=== PATIENT | male | born 1965 | race Caucasian/White ===

== ENCOUNTER 2023-06-26 15:26 | Observation (INO) | payer BC, SELFPAY ==
[2023-06-26 11:17] VITALS: BP 140/105
[2023-06-26 11:57] VITALS: BMI 30.9
[2023-06-26 12:16] LABS: % Basophils 0.8 % (0-2); % Eosinophils 0.5 % (0-6); % Immature Granulocytes 0.7 % (0-0.5); % Lymphocytes 13.3 % (20.5-51.1); % Monocytes 10.7 % (1.7-9.3); Absolute Basophils 0.1 10^3/uL (0-0.2); Absolute Immature Granulocytes 0.1 10^3/uL (0-0.05); Absolute Monocytes 0.8 10^3/uL (0.1-0.6); Absolute Neutrophils 5.6 10^3/uL (1.4-6.5); Hematocrit 44.3 % (39.0-52.0); Hemoglobin 15.3 g/dL (13.0-18.0); Mean Corp Hgb Conc. 34.5 g/dL (33.0-37.0); Mean Corpuscular Hgb 35.3 pg (27.0-31.0); Mean Corpuscular Volume 102.3 fL (80.0-94.0); Mean Platelet Volume 9.8 fL (7.4-10.4); Nucleated Red Blood Cells % 0 % (-); Platelet Count 156 10^3/uL (130-400); Red Blood Cell Count 4.33 10^6/uL (4.70-6.10); Red Cell Dist. Width 11.3 % (11.5-14.5); White Blood Cell Count 7.6 10^3/uL (4.8-10.8)
[2023-06-26 12:32] LABS: ALT (SGPT) 49 U/L (0-50); AST (SGOT) 47 U/L (17-59); Albumin 4.5 g/dl (3.5-5.0); Alkaline Phosphatase 72 U/L (38-126); Blood Urea Nitrogen 10 mg/dl (9-20); Calcium 9.8 mg/dl (8.4-10.2); Carbon Dioxide 25 mmol/L (22-30); Chloride 102 mmol/L (98-107); Estimated Creatinine Clearance 91 ml/min; Glucose 117 mg/dl (70-99); Potassium 4.2 mmol/L (3.5-5.1); Sodium 134 mmol/L (135-145); Total Bilirubin 1.1 mg/dl (0.2-1.3); Total Protein 7.4 g/dl (6.3-8.2); eGFR > 60.00
--- NOTE | 2023-06-26 12:33 | ED.GENMED ---
History of Present Illness
<Peri Hurtado MD - Last Filed: 06/26/23 12:34>
General
Chief Complaint: Musculo-Skeletal Complaint
Time Seen by Provider: 06/26/23 11:35
Travel History
Have you had any contact with someone who has COVID-19?: No
Do you have any symptoms of coronavirus? Fever > 100 degrees, chills, cough, shortness of breath, sore throat, loss of taste or smell, muscle aches, or headache?: No
<Bayron Anthony Jr., PA-C - Last Filed: 06/26/23 14:31>
General
Source: patient and spouse
Exam Limitations: none
Nursing documentation reviewed up to this point in time: agreed with
History of Present Illness
History of Present Illness:
57-year-old male with past with history of GERD previous back issues previous smoker presenting to the emergency department today with concerns of 2 days of right-sided foot swelling as well as 1 day of left-sided foot swelling. Swelling
significantly worsened today and diffuse to the left foot maximal to the toes. Minimal swelling mainly to the toes to the right foot otherwise no significant redness past the ankles or proximal. No chest pain shortness of breath no history of
blood clots no recent trauma surgery immobilization. No recent illnesses or fever. No trauma to the area.
Past History
<Peri Hurtado MD - Last Filed: 06/26/23 12:34>
Past History
ED Past Medical History: None
ED Past Surgical History: Orthopedic
Social History
Tobacco: Non-smoker
Alcohol: Occasional
Personal:
Living: with family
Employment: Retired
Review of Systems
<Bayron Anthony Jr., PA-C - Last Filed: 06/26/23 14:31>
Review of Systems
Allergies reviewed?: Yes
All Other Systems: ROS reviewed and negative except as documented in HPI and ROS
Phy Exam
<Bayron Anthony Jr., PA-C - Last Filed: 06/26/23 14:31>
Physical Exam
Physical Exam:
GENERAL: Alert , in no apparent distress
EYE: pupils equal and reactive
NECK: Supple, no significant adenopathy.
ENT: o/p clr, mmm.
CARDIAC: Regular rate and rhythm .
LUNGS: Clear breath sounds bilaterally, no acute respiratory distress, no wheezes/rales/rhonchi
ABDOMEN: Soft, without focal tenderness, no r/g, no cvat
NEUROLOGICAL: Alert and oriented, no focal neuro deficits
SKIN: Warm and dry, skin intact.
MUSCULOSKELETAL: Significant swelling to the feet bilaterally left worse than the right but maximal to the great toe of the left foot but into the sole of the foot on the left side swelling mainly to the toes on the right side. Very tender to
palpation with even light palpation well perfused.
PSYCH: Normal and appropriate interaction.
Course
<Peri Hurtado MD - Last Filed: 06/26/23 12:34>
Orders/Labs/Results
Orders:
Orders
06/26/23 11:50
Venous Doppler Lwr Ext Bilat [US Periph Venous LOWER Ext Mike] Urgent
Comment:
Reason For Exam: leg swelling
06/26/23 11:54
Foot, Left 3 View [CR Foot - Left Min 3 Views] Urgent
Comment:
Reason For Exam: foot pain swelling
Foot, Right 3 View [CR Foot - Right Min 3 Views] Urgent
Comment:
Reason For Exam: foot pain swelling
06/26/23 12:08
Add On- LAB Urgent
Tests Added?: uric acid
CBC/With Diff [Complete Blood Count/With Diff] Urgent
CMP [Comprehensive Metabolic Panel] Urgent
CRP [C-Reactive Protein] Urgent
ESR [Erythrocyte Sed Rate] Urgent
TSH Reflex To Free T4 Urgent
Uric Acid Urgent
Comment: ADD ON
06/26/23 13:12
Urinalysis Reflex To Culture Urgent
Date Specimen was Collected: 06/26/23
Time Specimen was Collected: 13:08
06/26/23 13:13
Ketorolac [Toradol] 30 mg IV NOW STA
06/26/23 14:29
Morphine Sulfate 4 mg IV NOW STA
Abnormal Lab Results
06/26/23 06/26/23
12:08 13:12
RBC 4.33 L 10^6/uL
(4.70-6.10)
MCV 102.3 H fL
(80.0-94.0)
MCH 35.3 H pg
(27.0-31.0)
RDW 11.3 L %
(11.5-14.5)
Abs Immat Gran (auto) 0.1 H 10^3/uL
(0-0.05)
Absolute Lymphs (auto) 1.0 L 10^3/uL
(1.2-3.4)
Absolute Monos (auto) 0.8 H 10^3/uL
(0.1-0.6)
Immature Gran % 0.7 H %
(0-0.5)
Lymphocytes % 13.3 L %
(20.5-51.1)
Monocytes % 10.7 H %
(1.7-9.3)
Sodium 134 L mmol/L
(135-145)
Glucose 117 H mg/dl
(70-99)
C-Reactive Protein 57.90 H mg/L
(0.0-10.00)
Urine Ketones Trace A
(Negative)
Urine Bilirubin 1+ A
(Negative)
06/26/23 12:08
06/26/23 12:08
Vital Signs
Initial and Last Documented VS:
Initial Vital Signs
Temp Pulse Resp BP Pulse Ox
97.9 F 88 18 140/105 98
06/26/23 11:17 06/26/23 11:17 06/26/23 11:17 06/26/23 11:17 06/26/23 11:17
Last Documented Vital Signs
Temp Pulse Resp BP Pulse Ox
97.9 F 64 18 129/85 97
06/26/23 11:17 06/26/23 13:06 06/26/23 13:06 06/26/23 13:06 06/26/23 13:06
<Bayron Anthony Jr., PA-C - Last Filed: 06/26/23 14:31>
Orders/Labs/Results
Orders:
Orders
06/26/23 11:50
Venous Doppler Lwr Ext Bilat [US Periph Venous LOWER Ext Mike] Urgent
Comment:
Reason For Exam: leg swelling
06/26/23 11:54
Foot, Left 3 View [CR Foot - Left Min 3 Views] Urgent
Comment:
Reason For Exam: foot pain swelling
Foot, Right 3 View [CR Foot - Right Min 3 Views] Urgent
Comment:
Reason For Exam: foot pain swelling
06/26/23 12:08
Add On- LAB Urgent
Tests Added?: uric acid
CBC/With Diff [Complete Blood Count/With Diff] Urgent
CMP [Comprehensive Metabolic Panel] Urgent
CRP [C-Reactive Protein] Urgent
ESR [Erythrocyte Sed Rate] Urgent
TSH Reflex To Free T4 Urgent
Uric Acid Urgent
Comment: ADD ON
06/26/23 13:12
Urinalysis Reflex To Culture Urgent
Date Specimen was Collected: 06/26/23
Time Specimen was Collected: 13:08
06/26/23 13:13
Ketorolac [Toradol] 30 mg IV NOW STA
06/26/23 14:29
Morphine Sulfate 4 mg IV NOW STA
Abnormal Lab Results
06/26/23 06/26/23
12:08 13:12
RBC 4.33 L 10^6/uL
(4.70-6.10)
MCV 102.3 H fL
(80.0-94.0)
MCH 35.3 H pg
(27.0-31.0)
RDW 11.3 L %
(11.5-14.5)
Abs Immat Gran (auto) 0.1 H 10^3/uL
(0-0.05)
Absolute Lymphs (auto) 1.0 L 10^3/uL
(1.2-3.4)
Absolute Monos (auto) 0.8 H 10^3/uL
(0.1-0.6)
Immature Gran % 0.7 H %
(0-0.5)
Lymphocytes % 13.3 L %
(20.5-51.1)
Monocytes % 10.7 H %
(1.7-9.3)
Sodium 134 L mmol/L
(135-145)
Glucose 117 H mg/dl
(70-99)
C-Reactive Protein 57.90 H mg/L
(0.0-10.00)
Urine Ketones Trace A
(Negative)
Urine Bilirubin 1+ A
(Negative)
06/26/23 12:08
06/26/23 12:08
Vital Signs
Initial and Last Documented VS:
Initial Vital Signs
Temp Pulse Resp BP Pulse Ox
97.9 F 88 18 140/105 98
06/26/23 11:17 06/26/23 11:17 06/26/23 11:17 06/26/23 11:17 06/26/23 11:17
Last Documented Vital Signs
Temp Pulse Resp BP Pulse Ox
97.9 F 64 18 129/85 97
06/26/23 11:17 06/26/23 13:06 06/26/23 13:06 06/26/23 13:06 06/26/23 13:06
<Bayron Anthony Jr., PA-C - Last Filed: 06/26/23 14:31>
MDM/Problems Addressed
MDM/Problems Addressed:
57 male presenting to the emergency department today with concerns of swelling redness and discomfort to the feet bilaterally left worse than the right but right starting 2 days ago left starting yesterday. No specific inciting event normal vital
signs afebrile does not appear to be consistent with infection as this is bilateral and has no systemic symptoms or fever. No immunosuppression history no history of diabetes. Labs show elevated CRP but otherwise no acute abnormalities to the
labs. X-ray showing arthritis but no acute abnormalities as well. Ultrasound not showing DVT. Patient still with ongoing significant symptoms was given a dose of Toradol without improvement. Unclear specific cause but having significant pain to
the point where he is unable to ambulate. Need for further assessment and monitoring.
<Bayron Anthony Jr., PA-C - Last Filed: 06/26/23 14:31>
*Critical Care Note
Total Time (30-74mins, 75-104mins- exclusive of procedures): Not Applicable
ED Attending Note
<Peri Hurtado MD - Last Filed: 06/26/23 12:34>
ED Attending Note
Patient seen and examined by attending physician: Yes
I performed the substantive portion of visit, reviewed & personally made and approve the management plan that is documented in note by myself or ANDRADE.: Yes
ED Attending Note:
The patient presents with painful to the touch, hyperemic toes bilaterally. In addition, patient has erythema, warmth and tenderness of his medial left ankle. Differential diagnosis includes circulatory, infection and arthritic process.
Clinically is painful like gout would be but very atypical and that there are multiple areas and it is bilateral.
-
Portions of this chart may have been created with voice recognition software.� Occasional wrong word or��sound alike� substitutions may have occurred due to the inherent limitations of voice recognition software.
Discharge Plan
Departure
Patient Disposition: Admit
Date of Disposition: 06/26/23
Time of Disposition: 14:31
Admit to: Med/Surg
Admit to doctor: Edmond
Presentation/result/management discussed w/ accepting MD/DO: Hospitalist
Patient with high blood pressure during this ER visit?: No
Condition: Good
Covid-19: Not Applicable
Discharge Problem:
Bilateral foot pain, Bilateral swelling of feet
Prescriptions:
No Action
famotidine 40 mg Tablet
40 mg PO HS
omeprazole 40 mg Capsule,Delayed Release(Dr/Ec)
40 mg PO DAILY
montelukast [Singulair] 10 mg Tablet
10 mg PO BID
Referrals:
Ghulam Cam MD [Family Provider] -
Interventions
Interventions:
*Risk Screen - Suicide Last Done: 06/26/23 11:58
*General Assessment Last Done: 06/26/23 11:58
*Neglect/Abuse Screening Last Done: 06/26/23 11:58
*ED COVID-19 Vaccine History Last Done: 06/26/23 11:17
ED-Musculoskeletal Assessment Last Done: 06/26/23 12:11
Discharge Date and Time
Print Language: CHINESE
[2023-06-26 13:02] LABS: Uric Acid 7.5 mg/dl (3.5-8.5)
[2023-06-26 13:04] LABS: TSH Reflex To Free T4 3.39 uIU/ml (0.47-4.68)
[2023-06-26 13:06] VITALS: BP 129/85
[2023-06-26 13:12] LABS: Erythrocyte Sed Rate 19 mm/hour (0-20)
[2023-06-26] MEDS: TORADOL 30 MG IV (13:16)
[2023-06-26 13:29] LABS: Urine Albumin Negative (Neg - Trace); Urine Bilirubin 1+ (Negative); Urine Character Clear (Clear); Urine Color Yellow; Urine Glucose Negative (Negative); Urine Ketone Trace (Negative); Urine Leukocyte Negative (Negative); Urine Nitrite Negative (Negative); Urine Occult Blood Negative (Negative); Urine Specific Gravity 1.005 (<1.030); Urine Urobilinogen Negative (Neg - 1+)
--- NOTE | 2023-06-26 14:33 | HPS.HSE ---
Addendum entered and electronically signed by Adam Edmond MD 06/26/23 15:51:
seen and examined by me independently in collaboration with the nurse practitioner Kimi.
Past medical history/social history/medication/allergies reviewed.
Lab data and imaging data reviewed.
Patient presents with acute onset of right ankle pain and inability to ambulate on Sunday morning- took some ibuprofen and felt better and then on subsequent morning he had left ankle pain and again inability to weight-bear on the left ankle. No
trauma.
He felt the left ankle was little swollen and red. no fever or chills.
No prior history of gout but he had acute bilateral big toe pain and swelling which got better with ibuprofen ;it was year ago.
No other joints involved.
No fever or chills.
Generally otherwise feeling okay.
Very sensitive touch of left foot. Medially the left ankle is slightly swollen and red. It is warm to touch. Pain on minimal movements of the left ankle.. Received pain medication. More free range of motion of the right ankle compared to this
morning Per patient.
Foot x-ray shows left distal interphalange joint arthritis which could have been gout but he also had trauma and fracture to that joint few years back which could explain it. Rt foot xray shows -osteoarthritis with moderate joint space narrowing and
mild degenerative spurring at the metatarsophalangeal joint of the great toe which probably prior joint insult form a dz process . Other joint are ok on xrays.
Elevated ESR noted.
Denies excessive consumption of alcohol on the weekend prior to onset of joint pains.
Clinical concern is for acute gouty oligoarthritis. In view of significant symptoms precluding weightbearing we will start on steroids and also colchicine. Follow response and if improved will cw colchicine alone. If worse will obtain
arthrocentesis of left ankle joint. Clinically less likely septic.
Original Note:
Family Physician
-
Family Physician: Ghulam Cam
Chief Complaint
-
bilat foot pain with ankle and lateral foot pain
History of Present Illness
57-year-old male complaining of 2 days of bilateral feet swelling that have significantly worsened today left greater than right. He states the pain started approximate 2 days ago with joint pain in his ankles and toes along with some swelling to
his toes mild erythema over right lateral foot and left tibial ankle. He reports he has been taking 800 mg once a day but is not helping. He states he normally has pain in both bilateral great toes that is relieved with Aleve. He denies any
injury, new shoes, prolonged walking ,blood clot history, chest pain, shortness of breath, cough, illness, fever, rash, chest pain, palpitations, urinary symptoms, nausea ,vomiting diarrhea, abdominal pain. He has past medical history of GERD,
back pain, ex-smoker.
Medical History
Past Medical History
Past Medical History: Reports Other
Additional Past Medical History:
GERD
back pain lumbar L3-L4
ex-smoker
Past Surgical History: Reports Other (L3-L4 epidural [address] [facility])
Social History
Tobacco: Former Smoker (22-year 1 pack a day stopped 3 years ago)
Alcohol: Occasional (Drinks 3 cans of Coors light 3 days a week)
Personal: Single
Living: Alone
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
Family History
Family History: Other (Father age 65 pancreatic cancer history DM2, mother estranged)
Allergies / Home Medications
Allergies reflects when Allergies were last updated in [employer].
Home Medications with original date entered in [employer]
Allergy/Medication List:
Allergies
Allergy/AdvReac Type Severity Reaction Status Date / Time
codeine [Codeine] Allergy nauesa Verified 06/26/23 11:23
mold Allergy clogged Uncoded 06/26/23 11:23
nose
Home Medications
famotidine 40 mg tablet 40 mg PO HS 06/26/23
montelukast 10 mg tablet (Singulair) 10 mg PO BID 06/26/23
omeprazole 40 mg capsule,delayed release 40 mg PO DAILY 06/26/23
Review of Systems
-
History Source: Patient
A 12 point ROS was completed and negative except as noted: Yes
Constitutional: Denies Fever, Fatigue or Chills
EENT: Denies Sore Throat, Mouth Pain or Runny Nose
Respiratory: Denies Cough or Trouble Breathing
Cardiac: Denies Chest Pain, Diaphoresis, Palpitations or Syncope
Abdomen/GI: Denies Abdominal Pain, Nausea, Vomiting, Diarrhea, Constipated, Bloody Stools or Black Stools
: Denies Dysuria, Frequency, Flank Pain, Incontinence, Difficulty Voiding or Urgency
Musculoskeletal: Reports Joint Pain (Bilateral feet), Joint Swelling and Edema (Toes, right lateral foot, left tibial ankle)
Skin: Denies Itching or Rash
Neurological: Denies Dizzy, Headache or Weakness
Endocrine: Reports No Symptoms
Hematologic/Lymphatic: Reports No Symptoms
Psych: Reports Calm
Physical Exam
Vital Signs
Vital Signs
Temp Pulse Resp BP Pulse Ox
97.9 F 64 18 129/85 97
06/26/23 11:17 06/26/23 13:06 06/26/23 13:06 06/26/23 13:06 06/26/23 13:06
Physical Exam
General: Conversant and Pain; No Fever or Chills
HEENT: NormoCephalic, Anicteric, Moist mucous membranes, PERRLA, [place] Conjunctivae and No Ptosis
Respiratory: Clear; No Wheezes, Rales or Rhonchi
Cardiac: S1/S2 and Regular Rhythm; No Murmur, Rub, Gallop or Peripheral Edema
GI: Soft, Non Tender, Non Distended, Normal Bowel Sounds and No Hepatosplenomegaly
Rectal: Deferred by Provider
Genito-urinary: Deferred by me
Musculoskeletal: No Clubbing, No Cyanosis, Edema, Left Lower Extremity (Slight edema toes increased pain sensitivity, left tibial ankle edema with slight erythema, soles of foot slightly erythematous) and Edema, Right Lower Extremity (Slight edema
to toes with increased pain sensation, positive cap refill, right lateral foot slight erythema with increased pain, soles of foot slightly erythematous); No Edema, Left Upper Extremity or Edema, Right Upper Extremity
Skin: Warm and Dry; No Rash
Neuro: AO x 3, Nonfocal/grossly intact, Cranial Nerves Intact and No Sensory Deficits; No Slurred Speech, Facial Droop or Tremors
Psych: Calm
Laboratory Results
-
06/26/23 12:08
06/26/23 12:08
Laboratory Results
Total Bilirubin 1.1 mg/dl (0.2-1.3) 06/26/23 12:08
AST 47 U/L (17-59) 06/26/23 12:08
ALT 49 U/L (0-50) 06/26/23 12:08
Alkaline Phosphatase 72 U/L (38-126) 06/26/23 12:08
Data Reviewed
-
Diagnostic Radiology: Report Reviewed by me
Ultrasound: Report Reviewed by me
Lab Data: Labs Reviewed by me
Impression/Plan
-
Impression/plan:
Observation MedSurg
#Acute bilateral foot/joint pain with ambulatory dysfunction concern for Gout
-CRP 57.9
-Start colchcine 1.2 mg po now then 0.6 mg bid start tmr
- single dose prednisone 20 mg now
- continue PPI and H2 chandan Pepcid
-Percocet 1 tab moderate to severe pain
-PT/OT/case management consult
Ultrasound peripheral bilateral lower legs: No DVT
X-ray left foot no acute abnormalities, calcaneal osteophytes, degenerative OA at the interphalangeal joint of the great toe
X-ray right foot: No acute abnormalities. Degenerative OA at the metatarsal phalangeal joint of the great toe
#GERD
-Continue Pepcid 40 mg at bedtime, omeprazole 40 mg daily
#Alcohol use
drinks 3 Coors light 3 days a week
#Former smoker
Total 20 to 1 pack a day quit 3 years ago
DVT prophylaxis
SCDs
Full code
[2023-06-26] MEDS: MORPHINE SULFATE 4 MG IV ×2 (15:10→20:46)
[2023-06-26] MEDS: COLCHICINE 1.19999999999999996 MG PO (15:51)
[2023-06-26] MEDS: DELTASONE 20 MG PO (15:52)
[2023-06-26 16:14] VITALS: BP 145/85
--- NOTE | 2023-06-26 17:05 | PTCARENOTE ---
pt arrived to unit at 1806 via stretcher from ED. pt slid himself over from stretcher to bed. pt reports serve b/l foot pain and unable to bear weight since Sunday. VSS. pt and oriented to unit. assessment and admissions complete.
--- NOTE | 2023-06-26 20:33 | PTCARENOTE ---
Pt complained of 8/10 burning and numbness pain throughout bilateral feet. Pt agitated. No pain medication available in [facility]. 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 Will reassess pain.
[2023-06-26 20:41] VITALS: BMI 30.7
[2023-06-26] MEDS: PEPCID 40 MG PO (20:46)
[2023-06-26 22:49] VITALS: BP 138/96
[2023-06-27 07:30] VITALS: BP 136/80
[2023-06-27] MEDS: PROTONIX 40 MG PO (07:55)
[2023-06-27] MEDS: COLCHICINE 0.599999999999999978 MG PO ×2 (07:55→19:38)
[2023-06-27] MEDS: SINGULAIR 10 MG PO (07:56)
[2023-06-27 09:49] VITALS: BP 127/89; PULSE 86
[2023-06-27 09:51] VITALS: BP 127/89; PULSE 86
[2023-06-27] MEDS: MORPHINE SULFATE 2 MG IV ×3 (10:10→23:05)
--- NOTE | 2023-06-27 11:38 | W.PN.HOSP.TC ---
Today's Communication/Plan
-
Continue with prednisone and colchicine for now.
DC planning
Assessment / Plan
Assessment / Plan
# Acute bilateral left more than right ankle pain. Nontraumatic. Sudden onset. Pain causing ambulatory dysfunction. Increased CRP noted.
Clinical concern is of acute gouty arthritis involving the ankle.
Patient seeing some improvement. In view of significant pain symptoms I would continue with both steroids and colchicine at the current time. Denies any worsening of GERD symptoms.
#GERD
-Continue Pepcid 40 mg at bedtime, omeprazole 40 mg daily
#Alcohol use
drinks 3 Coors light 3 days a week
#Former smoker
Total 20 to 1 pack a day quit 3 years ago
DVT prophylaxis
SCDs
Anticipated Discharge: Within 24 hours
Subjective/Interval History
-
Date of Service: June 27, 2023
Patient states the left leg is less swollen.
Able to get up and walk on the feet with the help of walker. That is an improvement for him.The right ankle is much improved.
Still trouble with bilateral ankle pain.
Objective Data
-
Vital Signs:
Vital Signs
Temp Pulse Resp BP Pulse Ox
98.2 F 59 14 136/80 97
06/27/23 07:30 06/27/23 07:30 06/27/23 07:30 06/27/23 07:30 06/27/23 07:30
Review of Systems
-
Constitutional: Denies Fever
Respiratory: Denies Trouble Breathing
Cardiac: Denies Chest Pain
Abdomen/GI: Denies Nausea or Vomiting
Neuro: Denies Dizzy
Physical Exam
-
General: No Apparent Distress
HEENT: Moist Mucous Membranes
Respiratory: Clear to Auscultation
Cardiac: Regular Rhythm and S1/S2
Musculoskeletal: Other (More full ROM in right ankle without much pain; Left ankle medial aspect swelling is improved. Still painful range of motion with flexion and extension of the ankle.)
Neuro: AO x 3
Psych: Calm
Data Reviewed
-
Labs: Labs Reviewed by me
[2023-06-27] MEDS: DELTASONE 20 MG PO (12:13)
[2023-06-27 15:30] VITALS: BP 137/91
--- NOTE | 2023-06-27 16:03 | CM ---
Reviewed chart, met with patient to obtain information for assessment. Ishan stated that he lives with his spouse in a one story home with one step to enter. He described himself as independent with all of her ADLs, personal care, dressing and
bathing. He ambulates without device but has been using a walker throughout his admission but does not use at home.
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 He drives and has been able to get himself to all his appointments and do his own shopping.
Patient has never had VN services.
He has never been to a SNF.
Patient has a prescription plan and uses [facility] for all of his medications.
His PCP is Ghulam Cam.
Obs letter provided and explained.
Plan: Case management will continue to follow and assist with discharge planning. Patient will return home when stable.
[2023-06-27] MEDS: PEPCID 40 MG PO (21:18)
[2023-06-27 23:00] VITALS: BP 158/92
[2023-06-28 07:00] VITALS: BP 150/94
[2023-06-28] MEDS: COLCHICINE 0.599999999999999978 MG PO (07:45)
[2023-06-28] MEDS: DELTASONE 20 MG PO (07:46)
[2023-06-28] MEDS: SINGULAIR 10 MG PO (07:46)
[2023-06-28] MEDS: PROTONIX 40 MG PO (07:46)
[2023-06-28] MEDS: MORPHINE SULFATE 2 MG IV (09:58)
[2023-06-28 12:15] VITALS: BP 166/92; PULSE 86; O2SAT 97
--- NOTE | 2023-06-28 12:56 | W.PN.HOSP.TC ---
Today's Communication/Plan
-
DC
Assessment / Plan
Assessment / Plan
# Acute bilateral left more than right ankle pain. Nontraumatic. Sudden onset. Pain causing ambulatory dysfunction. Increased CRP noted.
Clinical concern is of acute gouty arthritis involving the ankle.
Improving , walked ok with PT -needing walker . No fevers. Nontoxic. Denies any worsening of GERD symptoms.
in the bilateral ankle joints involvement causing ambulatory dysfunction ,he was started on steroids and colchicine together. Would tx for total of 5 more days of combination.
patient advised if no continued improvement in if any fevers to come back for further workup.
Advised to complete avoidance of alcohol while on treatments.
#GERD
-Continue Pepcid 40 mg at bedtime, omeprazole 40 mg daily
#Alcohol use
drinks 3 Coors light 3 days a week
#Former smoker
Total 20 to 1 pack a day quit 3 years ago
DVT prophylaxis
SCDs
Anticipated Discharge: Today
Subjective/Interval History
-
Date of Service: June 28, 2023
Patient feeling improved. Right leg ankle not much pain at all.
Left ankle pain persist but that ambulated well with PT today.
No fever or chills.
No new complaints.
No other joint involvement.
Objective Data
-
Vital Signs:
Vital Signs
Temp Pulse Resp BP Pulse Ox
97.6 F 85 18 150/94 95
06/28/23 07:00 06/28/23 07:00 06/28/23 07:00 06/28/23 07:00 06/28/23 07:00
I&O
06/27/23 06/28/23 06/29/23
06:59 06:59 06:59
Intake Total 850 / 850
Balance 850 / 850
Review of Systems
-
Constitutional: Denies Fever or Chills
EENT: Denies Sore Throat
Respiratory: Denies Cough or Trouble Breathing
Cardiac: Denies Chest Pain
Abdomen/GI: Denies Abdominal Pain, Nausea or Vomiting
Neuro: Denies Dizzy
Physical Exam
-
General: No Apparent Distress
HEENT: Moist Mucous Membranes
Respiratory: Clear to Auscultation
Cardiac: Regular Rhythm and S1/S2; Negative Tachycardic
GI: Soft
Musculoskeletal: Other (Painless ROM rt ankle; slight pain in lateral right foot area . Left ankle no swelling , painful ROM but improved.)
Neuro: AO x 3
Psych: Calm
--- NOTE | 2023-06-28 13:06 | W.DS.TRANS ---
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
-
Discharge Instructions:
Discharge Diagnosis/Procedures Bilateral ankle Arthritis-suspected gout
Diet Regular
Activity As tolerated
Driving Restrictions As prior to admission
Bathing Restrictions None
Other Services PT
Instructions:
Stand-Alone Forms:
Changes to Home Medications: Yes
Discharge Medications:
DC Medications w/original date entered in [facility]
famotidine 40 mg tablet 40 mg PO HS Gastrointestinal Issue 06/26/23
ibuprofen 800 mg tablet 800 mg PO BIDPRN PRN mild pain 06/26/23
montelukast 10 mg tablet (Singulair) 10 mg PO BID Allergies 06/26/23
olopatadine 0.2 % eye drops (Pataday Once Daily Relief) 1 drp BOTH EYES BIDPRN PRN dry eyes 06/26/23
omeprazole 20 mg capsule,delayed release 40 mg PO DAILY Gastrointestinal Issue 06/26/23
acetaminophen 325 mg tablet 650 mg (2 x 325 mg) PO Q4HPRN PRN mild pain /fever >100.4 #1 tab 06/28/23
colchicine 0.6 mg tablet 0.6 mg PO BID #6 tabs 06/28/23
prednisone 10 mg tablet 10 mg PO DIRECTED #7 tabs 06/28/23
tramadol 50 mg tablet 50 mg PO Q6HPRN PRN moderate pain #20 tabs 06/28/23
Home Medication Changes
New medication- colchicine medication-tramadol, prednisone
Pending Results: No
[2023-06-28 14:12] VITALS: BP 139/90
--- NOTE | 2023-06-28 14:41 | W.DCSUMMARY ---
Discharge Summary
Discharge Data
Date of Admission: 06/26/23
Date of Discharge: 06/28/23
-
Pending Results: No
Hospital Course
Primary diagnosis:
Acute bilateral ankle arthritis suspected gouty arthritis.
Secondary diagnosis:
Gastroesophageal reflux disease
Hospital course:
patient presented with acute onset of right ankle pain and inability to ambulate on Sunday morning- took some ibuprofen and felt better and then on subsequent morning he had left ankle pain and again inability to weight-bear on the left ankle. No
trauma. He felt the left ankle was little swollen and red. no fever or chills. No prior history of gout but he had acute bilateral big toe pain and swelling which got better with ibuprofen ;it was year ago.
No other joints involved.No fever or chills.
Very sensitive touch of left foot. Medially the left ankle is slightly swollen and red. It is warm to touch. Pain on minimal movements of the left ankle.
Foot x-ray shows left distal interphalange joint arthritis which could have been gout but he also had trauma and fracture to that joint few years back which could explain it. Rt foot xray shows -osteoarthritis with moderate joint space narrowing and
mild degenerative spurring at the metatarsophalangeal joint of the great toe which probably prior joint insult form a dz process . Other joint are ok on xrays.
Elevated CRP noted.
clinical concern is of acute possible gouty arthritis. his uric acid levels are okay.
In view of significant symptomatology and weightbearing issues he was started both on prednisone at 18 and colchicine. He had improvement on is able to walk with a walker. He was discharged home on a short course of steroids and colchicine. He
was advised if he develops any fever or chills or if he develops any more swelling or does not continuously feel improved to come back to the ER. He was also advised to avoid alcohol altogether during the treatments. His GERD symptoms were under
control during the stay here
Consultants on board:
Discharge Plan
-
Patient Disposition: Home with Home Care
Discharge Diagnosis/Procedures: Bilateral ankle Arthritis-suspected gout
Diet: Regular
Activity: As tolerated
Driving Restrictions: As prior to admission
Bathing Restrictions: None
Other Services: PT
Activity Restrictions/Additional Instructions:
avoid alcohol while on treatment
Referrals:
Ghualm Cam MD [Family Provider] - in less than 1 week
Prescriptions:
New
acetaminophen 325 mg Tablet
650 mg PO Q4HPRN PRN (Reason: mild pain /fever >100.4) Qty: 1 0RF
tramadol 50 mg Tablet
50 mg PO Q6HPRN PRN (Reason: moderate pain) Qty: 20 0RF
colchicine 0.6 mg Tablet
0.6 mg PO BID Qty: 6 0RF
prednisone 10 mg tablet
10 mg PO DIRECTED Qty: 7 0RF
Rx Instructions:
20mg daily *2 day and then 10mg daily for 3 days and stop
Continued
famotidine 40 mg Tablet
40 mg PO HS
montelukast [Singulair] 10 mg Tablet
10 mg PO BID
ibuprofen 800 mg Tablet
800 mg PO BIDPRN PRN (Reason: mild pain)
omeprazole 20 mg Capsule,Delayed Release(Dr/Ec)
40 mg PO DAILY
olopatadine [Pataday Once Daily Relief] 0.2 % Drops
1 drp BOTH EYES BIDPRN PRN (Reason: dry eyes)
Discontinued
naproxen sodium [Aleve] 220 mg Tablet
440 mg PO DAILYPRN PRN (Reason: mild pain)
Discharge Orders:
Discharge Patient (As Directed); Ordered 06/28/23
Ordered By: Adam Edmond
Discharge Date and Time
Discharge Date/Time: 06/28/23 14:14
Print Language: GERMAN
== END 2023-06-28 14:14 | disposition home or self-care (01) ==
LOC: 3 WEST ACU 15:26
PROVIDERS: Physician Assistant; ADMITTING PHYSICIAN Internal Medicine; EMERGENCY PHYSICIAN Emergency Medicine; FAMILY PHYSICIAN Family Medicine
DX: M19.072 Primary osteoarthritis, left ankle and foot (principal); M19.071 Primary osteoarthritis, right ankle and foot; R22.43 Localized swelling, mass and lump, lower limb, bilateral; K21.9 Gastro-esophageal reflux disease without esophagitis; R79.82 Elevated C-reactive protein (CRP); F10.90 Alcohol use, unspecified, uncomplicated; Z87.891 Personal history of nicotine dependence; Z88.5 Allergy status to narcotic agent
CPT/HCPCS: 73630; 80053; 81003; 84443; 84550; 85025; 85652; 86140; 93970; 96374; 96375; 97116; 97161; 97166; 99285

== ENCOUNTER → 2023-10-30 07:21 | Outpatient (REF) | payer BC, SELFPAY | LOC: RAD 07:21 | PROVIDERS: ATTENDING PHYSICIAN Nurse Practitioner Family; FAMILY PHYSICIAN Family Medicine | DX: R10.84 Generalized abdominal pain (principal) | CPT/HCPCS: 76700 ==

== ENCOUNTER 2024-12-10 03:00 | Emergency (ER) | payer BC, SELFPAY ==
[2024-12-10 03:01] VITALS: BP 143/106
[2024-12-10 03:04] VITALS: BP 143/106
[2024-12-10 03:07] LABS: Glucose - Point of Care 98 mg/dl (70-99)
[2024-12-10] MEDS: VALIUM INJECTION 5 MG IV (03:11)
[2024-12-10 03:19] LABS: Hematocrit 44.1 % (39.0-52.0); Hemoglobin 15.3 g/dL (13.0-18.0); Mean Corp Hgb Conc. 34.7 g/dL (33.0-37.0); Mean Corpuscular Volume 100.0 fL (80.0-94.0); Nucleated Red Blood Cells % 0 % (-); Platelet Count 183 10^3/uL (130-400); Red Cell Dist. Width 11.3 % (11.5-14.5)
[2024-12-10 03:31] VITALS: BP 155/101
[2024-12-10 03:32] VITALS: BP 150/97
[2024-12-10 03:39] LABS: APTT 27.3 Sec (23.4-35.0); INR 0.92; PT 12.6 Sec (11.4-14.6)
[2024-12-10 03:40] VITALS: BP 141/93
[2024-12-10 03:46] LABS: ALT (SGPT) 58 U/L (0-50); AST (SGOT) 52 U/L (17-59); Acetaminophen < 10 ug/ml (10-30); Albumin 4.7 g/dl (3.5-5.0); Alkaline Phosphatase 95 U/L (38-126); Blood Urea Nitrogen 11 mg/dl (9-20); Calcium 9.7 mg/dl (8.4-10.2); Carbon Dioxide 28 mmol/L (22-30); Chloride 106 mmol/L (98-107); Estimated Creatinine Clearance 74 ml/min; Glucose 104 mg/dl (70-99); Potassium 4.4 mmol/L (3.5-5.1); Salicylate < 1.0 mg/dl (2.0-20.0); Sodium 144 mmol/L (135-145); Total Protein 7.8 g/dl (6.3-8.2); eGFR > 60.00
[2024-12-10 03:57] LABS: Troponin I < 0.012 ng/ml
[2024-12-10 04:30] VITALS: BP 126/95
[2024-12-10] MEDS: TYLENOL 1000 MG PO (05:11)
--- NOTE | 2024-12-10 05:56 | ED.GENMED ---
History of Present Illness
General
Chief Complaint: Fainting/Passed Out
Source: patient
Exam Limitations: none
Time Seen by Provider: 12/10/24 03:11
Nursing documentation reviewed up to this point in time: agreed with
History of Present Illness
History of Present Illness:
Note:
CHIEF COMPLAINT(S)
Headache and facial pain secondary to fall.
HISTORY OF PRESENT ILLNESS
The patient is a 58-year-old male who presented after sustaining a fall. He reports getting up out of bed and subsequently falling and hitting his face on a desk, leading to a significant facial impact. The incident resulted in a major headache
characterized by a pounding sensation, which he describes as severe. The patient admits to consuming alcohol and states his current use is more than he should, with recent laboratory results indicating a blood alcohol level of 3.8, which is over
four times the legal limit. He reports feeling significantly inebriated but acknowledges that he did not drive to the hospital. The patient also mentioned that he has been experiencing resting tremors over the past three months. He denies any
current smoking but consumes minimal caffeine, approximately one to two cups of coffee per day. He expresses readiness to return home, although he is experiencing continued headache symptoms.
SOCIAL HISTORY
The patient denies smoking and reports drinking alcohol, specifically [place], stating consumption is excessive. He typically drinks alcohol beyond safe limits. He reports not consuming caffeinated beverages frequently apart from one to two cups
of coffee, with most of his fluid intake being water or lemonade.
PHYSICAL EXAM
General: Alert, minimal acute distress after awakening.
Skin: Warm, dry.
Head: Normocephalic, hematoma to right forehead, observes facial pain region noted from fall.
Neck: Supple, trachea midline.
Eye Ears, nose, mouth, and throat: Oral mucosa moist.
Cardiovascular: Normal peripheral perfusion, No edema.
Respiratory: Respirations are non-labored.
Gastrointestinal: Abdomen nondistended.
Back: Normal range of motion, Normal alignment.
Musculoskeletal: Normal range of motion, normal strength.
Neurological: Alert and oriented to person, place, time, and situation, No focal neurological deficit observed.
Psychiatric: Cooperative, appropriate mood & affect.
PROBLEM LIST
- Acute: Headache and facial pain due to fall, excessive alcohol intoxication.
PLAN
- The patient was educated on the risks of excessive alcohol consumption, emphasizing the potential dangers of falls and injuries related to intoxication.
- Discussed the importance of considering a detoxification program and potential referral to assist with alcohol dependency.
- Patient encouraged to seek follow-up care for further management of alcohol use and evaluation of resting tremors noted over the last few months.
- Prescribed hezj-nbe-clmbekw analgesics, such as acetaminophen, for headache management.
DIFFERENTIAL DIAGNOSIS
The Differential Diagnosis includes, in no particular order and is not limited to:
- Alcohol intoxication
- Alcohol withdrawal
- Intracranial injury
- Migraine
- Tension-type headache
- Hypertension-related headache
- Benign essential tremor
- Traumatic facial injury
- Sinus headache
- Substance-induced tremor
CARE-UPDATE
12/10/24 - 05:00
Patient reports consuming [place]. Elevated lab levels, likely related to alcohol intake, were discussed. Patient attempted ambulation but was unsuccessful due to instability. He expressed a desire to stay overnight and will remain hospitalized
until he achieves stable ambulation for safe discharge.
Disposition:
SUMMARY OF ENCOUNTER
The patient, a 58-year-old male, presented to the emergency department following a fall with significant facial impact. He sustained a headache and facial pain secondary to the fall. The patients alcohol level was found to be elevated at 3.8,
indicating excessive consumption. A CT scan was performed to assess for any intracranial injury, the results were negative. During the visit, the patient was ambulatory with assistance. Discussions focused on alcohol moderation and the health risks
associated with excessive alcohol intake. The patients condition was monitored until he was stable enough for discharge.
DISPOSITION
Discharge to home.
ASSESSMENT
The patient presents with facial pain and headache secondary to a fall, compounded by excessive alcohol intoxication.
PLAN
The patient was educated on reducing alcohol consumption and the importance of seeking follow-up care for his alcohol use and resting tremors. For the management of the headache, an wvnv-nkm-izfbizp analgesic such as acetaminophen was recommended.
INDEPENDENT REVIEW OF LABS AND INTERPRETATION OF TESTS
My independent review of the blood alcohol test indicates elevated levels.
PATIENT EDUCATION AND COUNSELING
The patient was counseled on the risks associated with excessive alcohol consumption, including the danger of falls and potential for injury. Alcohol moderation was strongly advised.
FOLLOW-UP INSTRUCTIONS
The patient was advised to seek follow-up care for further management of alcohol use and evaluation of his resting tremors.
MEDICATION RECONCILIATION
Prescribed acetaminophen as an nnrh-yxp-gexxawr analgesic for headache management.
MEDICAL DECISION MAKING
- Complexity of Data Reviewed: Chronic conditions affecting care include alcohol use disorder and tremor.
Differential Diagnosis: Alcohol intoxication, Alcohol withdrawal, Intracranial injury, Migraine, Tension-type headache, Hypertension-related headache, Benign essential tremor, Traumatic facial injury, Sinus headache, Substance-induced tremor.
- Data:
- Category 1: Tests and documents reviewed include an elevated blood alcohol level. CT scan results were independently reviewed, showing no intracranial injury.
- Category 2: Discussion with the patients regarding his discharge and her intention to take him home.
- Risk: Consideration of Admission/Observation: Escalation of care including admission/observation was considered given the complexity and risk of the patients presenting complaint and history of falls possibly due to high alcohol intake.
Ultimately, it was deemed safe for the patient to be managed as an outpatient with close follow-up. Reasoning: Work-up was reassuring, symptoms were well controlled, and the patient was stable and agreeable with discharge.
DIAGNOSIS
- Alcohol intoxication (ICD-10: F10.929)
- Headache (ICD-10: R51.9)
- Facial pain (ICD-10: G50.1)
Past History
Past History
ED Past Medical History: None
ED Past Surgical History: Orthopedic
Social History
Tobacco: Non-smoker
Alcohol: Occasional
Personal:
Living: with family
Employment: Retired
Phy Exam
Physical Exam
Physical Exam:
.
Course
Orders/Labs/Results
Orders:
Orders
12/10/24 03:03
EKG [Electrocardiogram (*1)] Urgent
Reason for Study: Syncope
EKG- Treatment ONCE
12/10/24 03:04
Naloxone [Narcan] 2 mg .ROUTE .STK-MED ONE
12/10/24 03:08
Acetaminophen Urgent
Alcohol Urgent
Complete Blood Count/With Diff Urgent
Comprehensive Metabolic Panel Urgent
PTT Urgent
Prothrombin Time Urgent
Salicylate Urgent
Troponin I Urgent
diazePAM [Valium Injection] 10 mg .ROUTE .STK-MED ONE
12/10/24 03:10
diazePAM [Valium Injection] 5 mg IV NOW STA
12/10/24 03:11
CT Cervical Spine W/o Iv Contr Urgent
Comment:
Reason For Exam: fall, AMS
CT Head W/o Iv Contrast Urgent
Comment:
Reason For Exam: ams, fall hematoma to head
12/10/24 03:36
Ceribell [Rapid Point of Care EEG (ED/ICU ONLY)] Q1H
Indications for use:: Other
Comment: Tremors
12/10/24 05:08
Acetaminophen [Tylenol] 1,000 mg .ROUTE .STK-MED ONE
12/10/24 05:10
Acetaminophen [Tylenol] 1,000 mg PO NOW STA
Abnormal Lab Results
12/10/24
03:08
RBC 4.41 L 10^6/uL
(4.70-6.10)
MCV 100.0 H fL
(80.0-94.0)
MCH 34.7 H pg
(27.0-31.0)
RDW 11.3 L %
(11.5-14.5)
Abs Immat Gran (auto) 0.1 H 10^3/uL
(0-0.05)
Absolute Lymphs (auto) 4.5 H 10^3/uL
(1.2-3.4)
Absolute Monos (auto) 0.9 H 10^3/uL
(0.1-0.6)
Immature Gran % 0.6 H %
(0-0.5)
Glucose 104 H mg/dl
(70-99)
ALT 58 H U/L
(0-50)
Salicylates < 1.0 L mg/dl
(2.0-20.0)
Acetaminophen < 10 L ug/ml
(10-30)
12/10/24 03:08
12/10/24 03:08
Vital Signs
Initial and Last Documented VS:
Initial Vital Signs
BP
143/106
12/10/24 03:01
Last Documented Vital Signs
Pulse Resp BP Pulse Ox
87 18 126/95 98
12/10/24 06:00 12/10/24 06:00 12/10/24 04:30 12/10/24 06:02
*Pulse Oximetry
SaO2: 98
Nasal Cannula flow liters per minute: 2
Oxygen Mode of Delivery: Room air
Patient hypoxic: no
*Critical Care Note
Total Time (30-74mins, 75-104mins- exclusive of procedures): Not Applicable
ED Attending Note
-
Portions of this chart may have been created with voice recognition software.� Occasional wrong word or��sound alike� substitutions may have occurred due to the inherent limitations of voice recognition software.
Discharge Plan
Departure
Patient Disposition: Home (Routine Discharge)
Date of Disposition: 12/10/24
Time of Disposition: 05:57
Patient with high blood pressure during this ER visit?: Yes
Discharge Problem:
Alcohol intoxication, Hematoma of frontal scalp
Instructions: Alcohol intoxication - ED (DC)
Prescriptions:
No Action
famotidine 40 mg Tablet
40 mg PO HS
ibuprofen 800 mg Tablet
800 mg PO BIDPRN PRN (Reason: mild pain)
omeprazole 20 mg Capsule,Delayed Release(Dr/Ec)
40 mg PO DAILY
acetaminophen 325 mg Tablet
650 mg PO Q4HPRN PRN (Reason: mild pain /fever >100.4) Qty: 1 0RF
cetirizine [Zyrtec] 10 mg Tablet
10 mg PO DAILY
Referrals:
Ghulam Cam MD [Family Provider, Family Practice]
Interventions
Interventions:
*Risk Screen - Suicide Last Done: 12/10/24 03:12
*General Assessment Last Done: 12/10/24 03:12
*Neglect/Abuse Screening Last Done: 12/10/24 03:12
*ED- Fall Risk Assessment Last Done: 12/10/24 03:12
*ED COVID-19 Vaccine History Last Done: 12/10/24 03:12
*ED Influenza Vaccine History Last Done: 12/10/24 03:12
*Nursing Disposition Last Done: 12/10/24 06:13
ED- Cardiac Assessment Last Done: 12/10/24 03:42
ED- Neurological Assessment Last Done: 12/10/24 03:42
Discharge Date and Time
Discharge Date/Time: 12/10/24 06:13
Print Language: MACEDONIAN
--- NOTE | 2024-12-10 16:31 | W.RAPID.EEG ---
Rapid EEG
-
Procedure Date: 12/10/24
Results:
IMPRESSION:
No evidence of status epilepticus
Diagnostic Recording Time: 00:53:00 (53 minutes)
Recording 1:
Start Time: Dec 10, 2024 03:35 AM End Time: Dec 10, 2024 04:28 AM
Recording Technique: This EEG was obtained using a 10 lead, 8 channel system positioned circumferentially without any parasagittal coverage (rapid EEG).Computer selected EEG is reviewed as well as background features and all clinically significant
events. Clarity algorithm utilized and implemented to provide analysis of underlying activity and seizure detection used to facilitate reading. ICD-10 Code [id number]
Clinical History: PRAVIN LOTT is a 58 year old Other, Other: TREMORS patient undergoing EEG to screen for non-convulsive status epilepticus.
Disclaimer: EEG findings should be interpreted in the context of clinical history and other tests. A normal EEG does not rule out epilepsy or other conditions, and an abnormal EEG is not diagnostic on its own. Technical factors may affect
interpretation. Clinical context is required.
== END 2024-12-10 06:13 | disposition home or self-care (01) ==
LOC: EMR 03:00
PROVIDERS: EMERGENCY PHYSICIAN Student in an Organized Health Care Education/Training Program; FAMILY PHYSICIAN Family Medicine
DX: F10.129 Alcohol abuse with intoxication, unspecified (principal); S00.83XA Contusion of other part of head, initial encounter; W01.190A Fall on same level from slipping, tripping and stumbling with subsequent striking against furniture, initial encounter; Y90.8 Blood alcohol level of 240 mg/100 ml or more
CPT/HCPCS: 99284; 96374; 70450; 72125; 80053; 80143; 80179; 82077; 82962; 84484; 85025; 85610; 85730; 93005

== ENCOUNTER → 2025-01-15 09:06 | Outpatient (REF) | payer BC, SELFPAY | LOC: PAVMRI 09:06 | PROVIDERS: ATTENDING PHYSICIAN Specialist; FAMILY PHYSICIAN Family Medicine | DX: M54.12 Radiculopathy, cervical region (principal) | CPT/HCPCS: 72141 ==